=== PATIENT | female | born 2000 | race African-American/Black ===

== ENCOUNTER 2021-05-11 15:42 | Emergency (ER) | payer MEDICAID ==
[~2021-05-11] VITALS: Ht 160 cm; Wt 50.0 kg
[2021-05-11 15:47] VITALS: BP 101/67
== END 2021-05-11 18:18 | disposition home or self-care (01) ==
LOC: ER 15:42
DX: M54.2 Cervicalgia (principal); M54.50 Low back pain, unspecified; V49.9XXA Car occupant (driver) (passenger) injured in unspecified traffic accident, initial encounter; Y93.89 Activity, other specified; Y92.410 Unspecified street and highway as the place of occurrence of the external cause
CPT/HCPCS: 99281